=== PATIENT | female | born 1995 | race Caucasian/White ===

== ENCOUNTER 2017-08-15 12:32 | Emergency (ER) | payer OTHER ==
[~2017-08-15] VITALS: Ht 154.9 cm; Wt 50.0 kg
[2017-08-15] MEDS ORDERED: NS 1,000 ML IV ONE (13:30)
[2017-08-15 13:53] LABS: BASO % 0.4 % (0.0-1.0); EOS # 0.1 10^3/uL (0.0-0.50); IMMATURE GRANULOCYTE % 0.4 % (0-0); LYMPH # 1.9 10^3/uL (1.5-6.5); LYMPH % 16.7 % (24.0-44.0); MEAN CORPUSCULAR HEMOGLOBIN 30.8 pg (27.0-33.0); MEAN CORPUSCULAR HGB CONC 34.5 g/dl (32.0-36.5); MEAN CORPUSCULAR VOLUME 89.3 fl (80.0-96.0); MONO # 0.9 10^3/uL (0.0-0.8); MONO % 7.5 % (0.0-5.0); NEUTROPHILS # 8.4 10^3/uL (1.8-7.7); PLATELET COUNT, AUTOMATED 243 10^3/uL (150-450); RED CELL DISTRIBUTION WIDTH 12.1 % (11.5-14.5); WHITE BLOOD COUNT 11.3 10^3/uL (4.0-10.0)
[2017-08-15 14:43] LABS: ALBUMIN 3.9 GM/DL (3.2-5.2); ALBUMIN/GLOBULIN RATIO 1.03 (1.00-1.93); ALKALINE PHOSPHATASE 52 U/L (45-117); ALT/SGPT 26 U/L (12-78); ANION GAP 9 MEQ/L (8-16); AST/SGOT 19 U/L (15-37); BILIRUBIN,DIRECT 0.1 MG/DL (0.0-0.2); BILIRUBIN,TOTAL 0.6 MG/DL (0.2-1.0); BLOOD UREA NITROGEN 9 MG/DL (7-18); CALCIUM LEVEL 9.1 MG/DL (8.5-10.1); CARBON DIOXIDE LEVEL 26 MEQ/L (21-32); CHLORIDE LEVEL 106 MEQ/L (98-107); CREATININE FOR GFR 0.79 MG/DL (0.55-1.02); GLUCOSE, FASTING 119 MG/DL (70-105); POTASSIUM SERUM 3.7 MEQ/L (3.5-5.1); SODIUM LEVEL 141 MEQ/L (136-145); TOTAL PROTEIN 7.7 GM/DL (6.4-8.2)
--- NOTE | 2017-08-15 15:30 | REP ---
Pelvic sonography: History: Heavy vaginal bleeding. Findings: Transabdominal scanning is performed. The patient declined transvaginal imaging. The uterine dimensions are normal at 6.4 x 3.2 x 3.7 cm. Endometrial echo is 1.1 cm thick. No focal uterine mass seen. No free fluid is noted. Normal ovaries are seen bilaterally. Right ovary dimensions are 3.1 x 2.1 x 3.2 cm. Left ovarian dimensions are 1.9 x 1.8 x 1.8 cm. Resistive indices are normal in each ovary at 0.68 and 0.63 on the right and left respectively by Doppler. No evidence of torsion. Impression: Normal pelvic sonography. Signed by Raul Francisco MD 08/15/2017 03:59 P
[2017-08-15 15:31] VITALS: BP 136/72
== END 2017-08-15 15:32 | disposition home or self-care (01) ==
LOC: M ED 12:32
DX: N93.8 Other specified abnormal uterine and vaginal bleeding (principal); Z87.42 Personal history of other diseases of the female genital tract; Z84.2 Family history of other diseases of the genitourinary system